=== PATIENT | female | born 1930 | race Caucasian/White ===

== ENCOUNTER → 2016-10-26 | Outpatient (CLI) | payer OTHER ==
[~2016-10-26] VITALS: Ht 157.5 cm; Wt 59.0 kg
[~2016-10-26] MED LIST: ATOR10TA15 PO; BENZOCAINE 20% ORAL SPR 60 ML CAN OROPHARYNG ONE; CALC1TAB87 PO; FISH1000 PO; GLUC500T4 PO; LACTCAP8 PO; LIDOCAINE HCL 2% JELLY 5 ML SYRINGE TOPICAL ONE; OMEP40CA2 PO; VITA2000 PO; VITA500C18 PO; VITACAP7 PO; WOMETAB2 PO
[2016-10-26 07:22] VITALS: BP 173/84; PULSE 70; RESP 16; TEMP 98.2; O2SAT 94
== END ==
LOC: HEND 06:56
PROVIDERS: ATTEND Internal Medicine Gastroenterology
DX: R13.10 Dysphagia, unspecified (principal)
CPT/HCPCS: 91010